=== PATIENT | male | born 1975 ===

== ENCOUNTER 2023-01-09 08:55 | Outpatient (CLI) | payer OTHER, SELFPAY ==
[2023-01-22 09:52] VITALS: BMI 27.1
--- NOTE | 2023-01-22 09:52 | WPDHOMESLEEP ---
Sleep Study - Home Unattended Date of Study: 01/09/23 Ordering Provider: MARINA Colmenares Interpreting Provider: Jany Ocampo MD Home Sleep Study Type: Watch PAT Height: 1.68 m Weight: 76.204 kg Body Mass Index: 27.1 Neck Circumference (inches): 16 [place]: 20 Reason for Sleep Study Hypersomnolence Sleep History Fito Ho is a 47-year-old male with history of hyperlipidemia who underwent a home sleep test for evaluation of snoring and daytime hypersomnia. This has been going on for over 2 years. He is constantly tired, has headaches and a dry mouth. His witnesses him having gasping at night. He is an aviation technician aircraft. He occasionally awakens from sleep short of breath. He never awakens at night with heartburn, belching or cough. He frequently snores and snores loud enough for others to complain. He never has trouble sleeping when he has a cold. He never wakes up gasping for breath during the night. He frequently has breathing problems at night. He occasionally sweats excessively at night. He constantly falls asleep during the day. He constantly falls asleep involuntarily and frequently falls asleep while driving. He rarely notices his heart pounding or beating irregularly during the night. He never experiences loss of muscle tone with strong emotion. He rarely feels paralyzed on waking or falling asleep. He does not experience vivid dreams upon waking or falling asleep. He never feels afraid of going to sleep. He never has nightmares. He never recalls his dreams. He never has thoughts racing through his mind. He rarely feels sad or depressed. He occasionally feels anxiety or worry about things. He rarely notices parts of his body jerk. He rarely kicks during the night. He rarely feels crawling or aching feelings in his legs. He never feels leg pain at night. He occasionally grinds his teeth during sleep and never has morning jaw pain. He occasionally feels bothered by pain during the day and is never awakened by pain during the night. He frequently wakes up feeling stiff in the morning and occasionally wakes up feeling sore and achy in the morning. He constantly wakes up with pain in his neck, spine, or joints. Normal bedtime is around 9 to 9:30pm on the weekdays and 10:30 to 11pm on the weekends, usually falling asleep in 5 to 10 minutes. He typically gets about 7 to 7.5 hours of sleep per night. His wake-up time is around 4:30am on the weekdays and 7am on the weekends. He is not sure how many times he typically wakes up during the night but he sometimes wakes up and reads on his phone then go back to sleep. He watches television before falling asleep. He sometimes takes naps in the afternoon or evening. Habits: Never tobacco smoker. Drinks about 1 to 3 caffeinated beverages per day. Alcohol use is 1 to 3 drinks per day. No recreational substances. [facility] Family History Family History Father Heart disease Diabetes mellitus Social History Social History Social History: patient reports smoking about 10 years 1 pack per day. Patient no longer smokes Smoking status: Never smoker Medications Home Medications Medication Instructions Recorded Confirmed Type rosuvastatin 20 mg tablet 20 mg PO DAILY 11/08/22 11/08/22 History Sleep Procedure The study was completed using [employer], a technically adequate device with seven channels: peripheral arterial tone, actigraphy, body position, snore, respiratory movement, pulse oximetry, sleep staging, and heart rate. Prior to using the device, the patient received verbal and written instructions for its application and was provided with the help desk phone number for additional telephonic instruction with 24-hour availability of qualified personnel to answer questions. The study was scored using CMS guidelines. Sleep Architecture The total recording
== END 2023-01-10 11:16 | disposition home or self-care (01) ==
LOC: ANHCSM 08:56
PROVIDERS: Visit Provider Physician Assistant
DX: G47.33 Obstructive sleep apnea (adult) (pediatric) (principal); G47.10 Hypersomnia, unspecified
CPT/HCPCS: 95800

== ENCOUNTER 2023-02-28 10:03 | Outpatient (CLI) | payer OTHER, SELFPAY ==
--- NOTE | 2023-03-21 11:04 | WPDSLEEPSTUD ---
Sleep Study Date of Study: 02/28/23 Ordering Provider: MARINA Colmenares Interpreting Physician: Jany Ocampo MD Sleep Study Type: Split Polysomnogram Height: 1.7 m Weight: 79.379 kg Body Mass Index: 27.3 Neck Circumference (inches): 16 [place]: 20 Reason for Sleep Study 01/09/2023 HST using WatchPat showing mild obstructive sleep apnea, AHI was 8.0 with desaturation 85% and snoring. , patient did not have medical comorbidity to proceed with PAP therapy He presents for split night titration study Sleep History Fito Ho is a 47-year-old male with history of hyperlipidemia who underwent a home sleep test for evaluation of snoring and daytime hypersomnia. His sleep complaints have been [resent for several years. He is constantly tired, has headaches and a dry mouth.? His witnesses him having gasping at night.? He is an jet aircraft servicer. ? He occasionally awakens from sleep short of breath.? He never awakens at night with heartburn, belching or cough.? He frequently snores and snores loud enough for others to complain. He never has trouble sleeping when he has a cold. He never wakes up gasping for breath during the night. He frequently has breathing problems at night. He occasionally sweats excessively at night. He constantly falls asleep during the day. He constantly falls asleep involuntarily and frequently falls asleep while driving.? He rarely notices his heart pounding or beating irregularly during the night.? He never experiences loss of muscle tone with strong emotion. He rarely feels paralyzed on waking or falling asleep. He does not experience vivid dreams upon waking or falling asleep. He never feels afraid of going to sleep. He never has nightmares. He never recalls his dreams. He never has thoughts racing through his mind. He rarely feels sad or depressed. He occasionally feels anxiety or worry about things. He rarely notices parts of his body jerk. He rarely kicks during the night. He rarely feels crawling or aching feelings in his legs. He never feels leg pain at night. He occasionally grinds his teeth during sleep and never has morning jaw pain. He occasionally feels bothered by pain during the day and is never awakened by pain during the night. He frequently wakes up feeling stiff in the morning and occasionally wakes up feeling sore and achy in the morning. He constantly wakes up with pain in his neck, spine, or joints.? Normal bedtime is around 9 to 9:30pm on the weekdays and 10:30 to 11pm on the weekends, usually falling asleep in 5 to 10 minutes. He typically gets about 7 to 7.5 hours of sleep per night. His wake-up time is around 4:30am on the weekdays and 7am on the weekends. He is not sure how many times he typically wakes up during the night but he sometimes wakes up and reads on his phone then go back to sleep. He watches television before falling asleep. He sometimes takes naps in the afternoon or evening.? Habits:? Never tobacco smoker. Drinks about 1 to 3 caffeinated beverages per day. Alcohol use is 1 to 3 drinks per day. No recreational substances. [facility] Family History Family History Father Heart disease Diabetes mellitus Social History Social History Social History: patient reports smoking about 10 years 1 pack per day. Patient no longer smokes Smoking status: Never smoker Medications Home Medications Medication Instructions Recorded Confirmed Type rosuvastatin 20 mg tablet 20 mg PO DAILY 11/08/22 11/08/22 History eszopiclone 2 mg tablet (Lunesta) 2 mg PO ONCE #1 tablet 01/23/23 Rx Sleep Procedure A full night polysomnogram using the [employer] multi-channel system recorded the standard physiologic parameters including EEG, EOG, submentalis EMG, anterior tibialis EMG, EKG, body position, nasal and oral airflow using nasal pressure sensor and thermistor. Respiratory rashida
[2023-03-21 11:18] VITALS: BMI 27.3
== END 2023-03-01 07:08 | disposition home or self-care (01) ==
LOC: ANHCSM 10:04
PROVIDERS: Visit Provider Physician Assistant
DX: G47.33 Obstructive sleep apnea (adult) (pediatric) (principal); G47.10 Hypersomnia, unspecified
CPT/HCPCS: 95811